=== PATIENT | female | born 1945 | race Caucasian/White ===

== ENCOUNTER 2019-04-24 14:38 | Emergency (ER) | payer MEDICARE, SELFPAY ==
[2019-04-24 14:48] VITALS: BP 148/70; PULSE 87; RESP 36; TEMP 36.9; O2SAT 98
--- NOTE | 2019-04-24 14:56 | ED.GENADULT ---
HPI - General Adult General Chief complaint: Skin/Abscess/Foreign Body Stated complaint: rash Time Seen by Provider: 04/24/19 14:59 Source: patient and RN notes reviewed Mode of arrival: ambulatory Limitations: no limitations History of Present Illness HPI narrative: This is a 73 years old female presents to the office for an evaluation of itchy rash/lesion for two weeks. Symptoms began with her scalp and has now moved down to her neck back and extremities. She has tried alcohol, hand cream and peroxide with no relief. Denies sick contact. Denies recent hospitalization. Related Data Home Medications Medication Instructions Recorded Confirmed Daliresp 500 mcg PO DAILY 02/07/19 04/24/19 acetaminophen 500 mg PO Q6H PRN 02/07/19 04/24/19 albuterol sulfate 2 puff INHALATION PRN PRN 02/07/19 04/24/19 arformoterol 15 mcg INHALATION BID 02/07/19 04/24/19 clopidogrel 75 mg PO DAILY 02/07/19 04/24/19 furosemide 20 mg PO DAILY 02/07/19 04/24/19 nitroglycerin 0.4 mg SUBLINGUAL Q5-15M PRN 02/07/19 04/24/19 rosuvastatin 20 mg PO DAILY 02/07/19 04/24/19 albuterol sulfate 2.5 mg INHALATION Q6H 03/21/19 04/24/19 arformoterol 15 mcg/2 mL solution 2 ml INHALATION DAILY 03/21/19 04/24/19 for nebulization ipratropium bromide 0.02 % 2.5 ml INHALATION Q6H 03/21/19 04/24/19 solution for inhalation lovastatin 20 mg tablet 20 mg PO DAILY 03/21/19 04/24/19 Allergies Allergy/AdvReac Type Severity Reaction Status Date / Time No Known Allergies Allergy Verified 03/21/19 13:49 Review of Systems Review of Systems: Narrative: CONSTITUTIONAL: Denies fever or feeling ill CARDIOVASCULAR: Denies chest pain RESPIRATORY: Reports chronic dyspnea due to COPD; sometimes wear oxygen at home/as needed GASTROINTESTINAL: Denies abdominal pain, nausea, vomiting GENITOURINARY: Denies urinary symptoms MUSCULOSKELETAL: Denies extremities pain NEUROLOGIC: Denies lightheaded PMFSH Past Medical History Medical History Acute blood loss anemia Acute exacerbation of chronic obstructive pulmonary disease (COPD) Acute GI bleeding Arthritis CAD (coronary artery disease) CHF (congestive heart failure) With ischemic cardiomyopathy with initial ejection fraction June 2017 at 35% improved ejection fraction August 2018 to 66 5% COPD (chronic obstructive pulmonary disease) PFTs October 2018 demonstrated moderately severe obstructive disease with severe small airway disease with good bronchodilator response, mild hyperinflation, severe air trapping with severe increase in airway resistance COPD (chronic obstructive pulmonary disease) Depression DVT prophylaxis Dysuria Elevated troponin Emphysema, unspecified Gastritis without peptic ulcer disease H/O: HTN (hypertension) History of heart attack June 2017 Hypercholesteremia Pneumonia Respiratory failure with hypoxia Surgical History Surgical History History of appendectomy History of carpal tunnel surgery [place] History of cholecystectomy February 2014 laparoscopic cholecystectomy performed by Dr. Alvarez History of hysterectomy Hx of bilateral cataract extraction April 2016 Hx of cardiac cath Cardiac catheterization June [address] Charles with a bare metal stent placed in the LAD Family History Family History Sibling Family history of cardiovascular disease Family history of chronic obstructive pulmonary disease Mother Patient's mother is , Onset Age: 74 Other Hypertension Social History Social History Social History: The patient is and lives with her daughter. She is a former smoker. She started smoking at the age of 14 and stopped at the age of 70. She smoked 1.5-2 packs per day. 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
== END 2019-04-24 15:15 | disposition home or self-care (01) ==
PROVIDERS: Emergency Provider Nurse Practitioner; PCP Family Medicine
DX: L21.9 Seborrheic dermatitis, unspecified (principal); I11.0 Hypertensive heart disease with heart failure; I25.2 Old myocardial infarction; I50.9 Heart failure, unspecified; Z87.891 Personal history of nicotine dependence
CPT/HCPCS: 99213; G0463

== ENCOUNTER 2019-05-16 17:48 | Emergency (ER) | payer MEDICARE, SELFPAY ==
[2019-05-16] VITALS (11 sets, daily range): BP systolic 138–154; BP diastolic 62–81; PULSE 75–79; RESP 17–24; TEMP 36.4–37.1; O2SAT 97–100
--- NOTE | ~2019-05-16 | XR_ITS ---
EXAMINATION: XR chest 1V portable DATE: 05/16/2019 18:15 INDICATION: Shortness of breath. TECHNIQUE: A single frontal view of the chest was obtained. COMPARISON: Chest 2 views 02/07/2019, chest CT 09/19/2018 FINDINGS: The lungs are hyperexpanded with lucencies, consistent with emphysema. Calcified bilateral lung nodules are consistent with old granulomatous disease. There is mild atelectasis in the lower virgilio ng zones. No pleural effusion or pneumothorax. The heart size is normal. IMPRESSION: 1. Mild atelectasis in the lower lung zones. 2. Severe emphysema. Reviewed, dictated and finalized at location A.
--- NOTE | 2019-05-16 17:55 | ECG_ITS ---
Measurements Intervals [place] Rate: 77 P: 72 SC: 153 QRS: 78 QRSD: 121 T: 65 QT: 410 QTc: 467 Interpretive Statements SINUS RHYTHM RIGHT BUNDLE BRANCH BLOCK BASELINE ARTIFACT- I, II, III, AVR, AVL, AVF, V4-V6 ABNORMAL ECG Electronically Signed On 05-16-2019 17:58:27 CDT by Michele Bartholomew D.O.
[2019-05-16 18:20] LABS: Basophils Absolute Auto 0.2 K/mm3 (0.0-0.1); Basophils Percent Auto 1.3 % (0.2-1.2); Eosinophils Absolute Auto 2.9 K/mm3 (0-0.3); Eosinophils Percent Auto 25.1 % (0-4.4); Hematocrit 39.1 % (37.0-47.0); Hemoglobin 11.5 g/dL (12.0-15.0); Immature Granulocyte Absolute 0.03 K/mm3 (0.00-0.031); Immature Granulocyte Percent A 0.3 % (0-0.5); Lymphocytes Absolute Auto 2.45 K/mm3 (0.9-3.2); Lymphocytes Percent Auto 21.5 % (18.3-44.2); Mean Corpuscular HGB Conc 29.4 g/dl (32-36); Mean Corpuscular Hemoglobin 24.7 pg (26-34); Mean Corpuscular Volume 84.1 fl (80-100); Mean Platelet Volume 9.1 fl (7.4-10.4); Monocytes Absolute Auto 1.1 K/mm3 (0.1-0.6); Neutrophils Absolute Auto 4.8 K/mm3 (1.3-6.7); Neutrophils Percent Auto 41.8 % (45.5-73.1); Platelet Count Result 480 k/mm3 (150-375); Red Blood Count 4.65 M/mm3 (4.2-5.4); Red Cell Distribution Width 18.6 % (11.5-14.5); White Blood Count 11.4 K/mm3 (4.5-10.0)
--- NOTE | 2019-05-16 18:23 | ED.SOB ---
HPI - SOB/Dyspnea General Chief Complaint: Shortness of Breath/Dyspnea Stated Complaint: copd exacerbation Time Seen by Provider: 05/16/19 18:18 Source: patient and RN notes reviewed Mode of arrival: other Limitations: no limitations History of Present Illness HPI Narrative: Pt is a 73 y/o female who presents to the ED with c/o SOB that began a few days ago, but suddenly worsened today. Pt has a hx of COPD. Pt states that she takes her medications as directed. Pt states that she called her PCP today and her PCP is ordering Prednisone for her. She states that she was on continuous home oxygen for a year, but she was recently removed from the continuous home oxygen. She notes that for the past week she has been on 1L of home oxygen. She notes that she uses home oxygen now whenever the weather changes or as needed. Pt's family states that she called Dr. Morales and the pt was recommended to come to the ED for further evaluation. Pt denies chest pain, fever, chills, cough, nausea, vomiting, recent weight changes, and being around any sick contacts. MD elicited complaint: shortness of breath Pertinent past history: COPD, congestive heart failure and pneumonia Onset (ago): day(s) Timing: other (suddenly worsened) Known history of: COPD, congestive heart failure and recurrent pneumonia Associated symptoms: denies other symptoms Related Data Home Medications Medication Instructions Recorded Confirmed Daliresp 500 mcg PO DAILY 02/07/19 04/24/19 acetaminophen 500 mg PO Q6H PRN 02/07/19 04/24/19 albuterol sulfate 2 puff INHALATION PRN PRN 02/07/19 04/24/19 arformoterol 15 mcg INHALATION BID 02/07/19 04/24/19 clopidogrel 75 mg PO DAILY 02/07/19 04/24/19 furosemide 20 mg PO DAILY 02/07/19 04/24/19 nitroglycerin 0.4 mg SUBLINGUAL Q5-15M PRN 02/07/19 04/24/19 rosuvastatin 20 mg PO DAILY 02/07/19 04/24/19 albuterol sulfate 2.5 mg INHALATION Q6H 03/21/19 04/24/19 arformoterol 15 mcg/2 mL solution 2 ml INHALATION DAILY 03/21/19 04/24/19 for nebulization ipratropium bromide 0.02 % 2.5 ml INHALATION Q6H 03/21/19 04/24/19 solution for inhalation lovastatin 20 mg tablet 20 mg PO DAILY 03/21/19 04/24/19 Allergies Allergy/AdvReac Type Severity Reaction Status Date / Time No Known Allergies Allergy Verified 03/21/19 13:49 Review of Systems Review of Systems: All systems reviewed & are unremarkable except as noted in HPI and below Constitutional: Constitutional: Denies chills, Denies fever(s), Denies weight gain and Denies weight loss Cardiovascular: Cardiovascular: Denies chest pain Respiratory: Respiratory: Denies cough and Reports dyspnea Gastrointestinal: Gastrointestinal: Denies nausea and Denies vomiting REPLACED BY [facility] Past Medical History Medical History (Updated 05/16/19 @ 19:46 by Oscar Lomax MD) Acute blood loss anemia Acute exacerbation of chronic obstructive pulmonary disease (COPD) Acute GI bleeding Arthritis CAD (coronary artery disease) Carpal tunnel syndrome Cataracts, bilateral CHF (congestive heart failure) With ischemic cardiomyopathy with initial ejection fraction June 2017 at 35% improved ejection fraction August 2018 to 66 5% COPD (chronic obstructive pulmonary disease) PFTs October 2018 demonstrated moderately severe obstructive disease with severe small airway disease with good bronchodilator response, mild hyperinflation, severe air trapping with severe increase in airway resistance COPD (chronic obstructive pulmonary disease) Depression DVT prophylaxis Dysuria Elevated troponin Emphysema, unspecified Gastritis without peptic ulcer disease H/O: HTN (hypertension) History of heart attack June 2017 Hypercholesteremia Pneumonia Respiratory failure with hypoxia Surgical History Surgical History History of appendectomy History of carpal tunnel surgery [place] History of cholecystectomy February 2014 laparoscopic cholecystectomy performed by Dr. Alvarez History o
[2019-05-16 18:30] LABS: Hypochromasia 1+ (NORMAL); Ovalocytes 1+ (NORMAL); Platelet Estimate Increased (Adequate)
[2019-05-16 18:33] LABS: Blood Urea Nitrogen 15 mg/dL (7-17); Calcium 9.1 mg/dL (8.4-10.2); Carbon Dioxide 26 mmol/L (22-30); Chloride 104 mmol/L (98-107); Estimated CRCL calculation 29 ml/min; Estimated Glomerular Filt Rate 49; Glucose 106 mg/dL (65-105); Potassium 4.7 mmol/L (3.4-5.0); Sodium 136 mmol/L (137-145)
[2019-05-16] MEDS: methylPREDNISolone SOD SUCC 125 MG VIAL IV PUSH (18:36)
[2019-05-16 18:52] LABS: Alveolar/Arterial O2 Gradient 31.2 mmHg; Base Excess ABG 0.8 mEq/l (+/-2.0); Fractional Inspired Oxygen 24 %; HCO3 ABG 26.3 mEq/l (22.0-26.0); Methemoglobin ABG 0.3 %THb (0-1.5); Oxygen Content ABG 16.5 %vol (16.0-22.0); Oxygen Saturation ABG 96.3 % (95.0-100.0); Oxyhemoglobin 95.1 % THb (90.0-100.0); PCO2 ABG 45.6 mmHg (35.0-45.0); PO2 ABG 85.7 mmHg (80.0-100.0); PO2 FiO2 Ratio Arterial Blood 3.57 %; Reduced Hemoglobin 4.6 %THb (0-5.0); Total Hemoglobin 12.3 g/dL (12.0-18.0); pH ABG 7.379 (7.350-7.450)
[2019-05-16 18:53] LABS: Device NASAL CANNULA; Site Drawn RIGHT BRACHIAL
== END 2019-05-16 20:22 | disposition home or self-care (01) ==
PROVIDERS: Emergency Medicine; Emergency Provider Emergency Medicine; PCP Family Medicine
DX: J44.1 Chronic obstructive pulmonary disease with (acute) exacerbation (principal); I25.10 Atherosclerotic heart disease of native coronary artery without angina pectoris; I50.9 Heart failure, unspecified; I11.0 Hypertensive heart disease with heart failure; E78.00 Pure hypercholesterolemia, unspecified; M19.90 Unspecified osteoarthritis, unspecified site; Z98.42 Cataract extraction status, left eye; Z98.41 Cataract extraction status, right eye; Z87.891 Personal history of nicotine dependence
CPT/HCPCS: 36415; 36600; 71045; 80048; 82375; 82805; 83050; 85025; 93005; 96374; 99284; J2930

== ENCOUNTER 2019-07-05 18:35 | Inpatient (IN) | payer MEDICARE, SELFPAY ==
[2019-07-05] VITALS (11 sets, daily range): BP systolic 70–110; BP diastolic 46–62; PULSE 65–100; RESP 18–27; TEMP 37.6; O2SAT 95–100
--- NOTE | ~2019-07-05 | XR_ITS ---
EXAMINATION: XR chest 1V portable EXAM DATE: 07/05/2019 20:02 INDICATION: Cough and weakness, history COPD. TECHNIQUE: Portable AP frontal chest x-ray was obtained. Comparison is made to prior examination from 05/16/2019. FINDINGS: Severe chronic hyperinflation. Some scattered post infectious residua unchanged. No conflue nt consolidation, pneumothorax or pleural effusion suspected. The bones are osteopenic. There are eve ny degenerative changes. Cardiomediastinal silhouette is normal. IMPRESSION: Severe chronic hyperinflation. Reviewed, dictated and finalized at location A.
--- NOTE | ~2019-07-05 | CT_ITS ---
EXAMINATION: CT brain wo con, CT cervical spine wo con EXAM DATE: 07/05/2019 19:53 INDICATION: Head injury, headache. Nausea and vomiting. Generalized weakness. TECHNIQUE: Spiral CT of the head was performed without contrast. Axial, coronal and sagittal images were reviewed. Spiral CT of the cervical spine was performed without contrast. Axial images were rev iewed. Coronal and sagittal reformatted images were also reviewed. The dose-length product (DLP) fo r this examination was 605.33 (accession [id number]), 110.08 (accession [id number]) mGy-cm. The exposure was tailored according to patient size, and iterative reconstruction (ASIR) was used as additional dose reduction technique. There is no prior study for comparison. FINDINGS: HEAD CT: There is no acute intraparenchymal hemorrhage. No evidence of intraparenchymal brain mass l esion. No evidence of acute infarction. There is moderate periventricular and subcortical hypodensit y, nonspecific but probably related to small vessel ischemic disease. There is moderate prominence of the sulci and ventricles related to cerebral atrophy. There is intracranial carotid arterioscler osis. There is no mass effect or midline shift. There is no obstructive hydrocephalus suspected. T here are no extra-axial collections. There are no acute calvarial fractures. Patient has had bilate ral ocular lens surgery. Soft tissue is unremarkable. The visualized sinuses and mastoid air cells are well aerated. 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 There is no evide nce of acute cervical fracture. The odontoid process is intact. Pre-dens space is normal. Preverte bral soft tissue is normal. There are no soft tissue abnormalities identified. There is no disc spa ce widening or traumatic vertebral body subluxation suspected. Moderate to severe cervical spondylos is. Severe apical emphysema with some right apical scarring. A detailed level by level evaluation of spondylosis can be added as addendum if requested. IMPRESSION: 1. No acute intracranial or cervical findings. 2. Age-related findings. Reviewed, dictated and finalized at location A. IMPRESSION: 1. No acute intracranial or cervical findings. 2. Age-related findings.
--- NOTE | ~2019-07-05 | XR_ITS ---
EXAMINATION: XR chest 1V portable DATE: 07/06/2019 01:02 INDICATION: Shortness of breath. TECHNIQUE: A single frontal view of the chest was obtained. COMPARISON: Chest single view 07/05/2019, chest CT 09/19/2018 FINDINGS: The lungs are hyperexpanded with lucencies, consistent with emphysema. There is mild scarri ng at the lung apices. Calcified bilateral lung nodules and calcified hilar lymph nodes are consisten t with old granulomatous disease. There is mild atelectasis in the lower lung zones. No pleural effus ion or pneumothorax. The heart size is normal. IMPRESSION: 1. Severe emphysema. 2. Mild scarring at the lung apices and mild atelectasis in the lower lung zones. Reviewed, dictated and finalized at location A. IMPRESSION: 1. Severe emphysema. 2. Mild scarring at the lung apices and mild atelectasis in the lower lung zone s.
--- NOTE | ~2019-07-05 | XR_ITS ---
EXAMINATION: XR chest 1V portable DATE: 07/06/2019 11:25 INDICATION: Right chest pain. TECHNIQUE: A single frontal view of the chest was obtained. COMPARISON: Chest single view 07/06/2019 at 12:52 AM, chest CT 09/19/2018 FINDINGS: The lungs are hyperexpanded with lucencies, consistent with emphysema. There is mild scarri ng at right lung apex. No pleural effusion or pneumothorax. The heart size is normal. IMPRESSION: 1. Severe emphysema. Reviewed, dictated and finalized at location A. IMPRESSION: 1. Severe emphysema.
--- NOTE | ~2019-07-05 | NM_ITS ---
EXAMINATION: NM pulmonary perfusion DATE: 07/07/2019 07:02 INDICATION: Chest pain. TECHNIQUE: 5.12 mCi Tc-99m MAA was administered intravenously for perfusion images. Scintigraphic i mages of the chest were obtained. COMPARISON: Chest single view 07/06/2019 FINDINGS: Perfusion images show large and moderate sized defects in the upper lobes and small and moderate size d defects in the lower lobes. The chest radiographs demonstrate severe emphysema. ] IMPRESSION: 1. Nondiagnostic (low or intermediate probability) for pulmonary embolism by modified PIOPED II crit eryoni. Reviewed, dictated and finalized at location A. IMPRESSION: 1. Nondiagnostic (low or intermediate probability) for pulmonary embolism by catie san PIOPED II criteria.
--- NOTE | 2019-07-05 18:47 | ECG_ITS ---
Measurements Intervals [place] Rate: 97 P: 81 DC: 167 QRS: 78 QRSD: 116 T: 73 QT: 363 QTc: 463 Interpretive Statements SINUS RHYTHM INCOMPLETE RIGHT BUNDLE BRANCH BLOCK BASELINE ARTIFACT- V3-V5 BORDERLINE ECG Electronically Signed On 07-05-2019 19:45:50 CDT by Michele Bartholomew D.O.
[2019-07-05 19:01] LABS: Basophils Percent Auto 0.3 % (0.2-1.2); Eosinophils Absolute Auto 0.2 K/mm3 (0-0.3); Eosinophils Percent Auto 1.6 % (0-4.4); Hematocrit 40.9 % (37.0-47.0); Immature Granulocyte Absolute 0.04 K/mm3 (0.00-0.031); Immature Granulocyte Percent A 0.3 % (0-0.5); Lymphocytes Absolute Auto 0.61 K/mm3 (0.9-3.2); Lymphocytes Percent Auto 5.3 % (18.3-44.2); Mean Corpuscular HGB Conc 31.8 g/dl (32-36); Mean Corpuscular Hemoglobin 27.4 pg (26-34); Mean Corpuscular Volume 86.3 fl (80-100); Mean Platelet Volume 8.6 fl (7.4-10.4); Monocytes Absolute Auto 0.8 K/mm3 (0.1-0.6); Neutrophils Absolute Auto 9.8 K/mm3 (1.3-6.7); Neutrophils Percent Auto 85.5 % (45.5-73.1); Platelet Count Result 335 k/mm3 (150-375); Red Blood Count 4.74 M/mm3 (4.2-5.4); Red Cell Distribution Width 21.7 % (11.5-14.5); White Blood Count 11.5 K/mm3 (4.5-10.0)
[2019-07-05 19:11] LABS: Ovalocytes 1+ (NORMAL); Platelet Estimate Adequate (Adequate)
[2019-07-05 19:13] LABS: Alanine Aminotransferase 11 U/L (4-35); Albumin Level 3.9 g/dL (3.5-5.1); Alkaline Phosphatase 104 U/L (38-126); Aspartate Amino Transferase 26 U/L (14-36); Bilirubin,Total 0.9 mg/dL (0.2-1.3); Blood Urea Nitrogen 24 mg/dL (7-17); Calcium 9.5 mg/dL (8.4-10.2); Carbon Dioxide 23 mmol/L (22-30); Chloride 105 mmol/L (98-107); Estimated CRCL calculation 21 ml/min; Estimated Glomerular Filt Rate 34; Glucose 88 mg/dL (65-105); Potassium 4.2 mmol/L (3.4-5.0); Sodium 137 mmol/L (137-145)
[2019-07-05 19:17] LABS: Partial Thromboplastin Time 26.8 SECONDS (22.3-36.8); Prothrombin Time 12.6 Seconds (11.1-14.7)
--- NOTE | 2019-07-05 19:37 | ED.GENADULT ---
HPI - General Adult General Chief complaint: GI Bleed Stated complaint: black stools, n/v Time Seen by Provider: 07/05/19 18:59 History of Present Illness HPI narrative: Patient presents with her daughter for numerous complaints. She starts with her headache which is 7 out of 10 which is been all day today. She has a history of headaches but this 1 is worse. She says she is on a blood thinner but does not know which one. The pain radiates to her neck shoulder blades and entire back, and then down her arms to the elbows. She did not try pain medicine for this at home. She has difficulty with her vision but this is chronic, she is off balance intermittently, but not now. She has some memory loss but no confusion and is oriented x3. She also has pain in the right flank, which also started today. She said that she has had black tarry stools for 3 weeks. Her appetite is poor and she has had dry heaves. She has a cough nausea chills and weakness. She does not have fever or sweats. She wears oxygen at home. She had chest pain today from when she woke up until middle of the afternoon. Is gone now. It was in the mid to left chest. Related Data Home Medications Medication Instructions Recorded Confirmed acetaminophen 500 mg PO Q6H PRN 02/07/19 07/06/19 clopidogrel 75 mg PO DAILY 02/07/19 07/06/19 furosemide 20 mg PO DAILY 02/07/19 07/06/19 nitroglycerin 0.4 mg SUBLINGUAL Q5-15M PRN 02/07/19 07/06/19 albuterol sulfate 2.5 mg INHALATION Q6H 03/21/19 07/06/19 arformoterol 15 mcg/2 mL solution 2 ml INHALATION DAILY 03/21/19 07/06/19 for nebulization ipratropium bromide 0.02 % 2.5 ml INHALATION Q6H 03/21/19 07/06/19 solution for inhalation lovastatin 20 mg tablet 20 mg PO DAILY 03/21/19 07/06/19 aspirin 81 mg tablet,delayed 81 mg PO DAILY 05/22/19 07/06/19 release metoprolol tartrate 50 mg tablet 50 mg PO BID tablet 05/22/19 07/06/19 Allergies Allergy/AdvReac Type Severity Reaction Status Date / Time No Known Allergies Allergy Verified 05/22/19 09:10 Review of Systems Review of Systems: Narrative: CONSTITUTIONAL: Denies fever, chills, or sweats. EYES: Denies visual changes, redness, or discharge. ENT: Denies rhinorrhea, congestion, sore throat, or otalgia. CARDIOVASCULAR: Denies palpitations, or edema. RESPIRATORY: Denies dyspnea. GASTROINTESTINAL: Denies abdominal pain, vomiting, or diarrhea. She has had black tarry stools for 3-week. GENITOURINARY: Denies dysuria or hematuria. SKIN: Denies rash or itching. MUSCULOSKELETAL: Denies joint pain, or myalgia. NEUROLOGIC: Denies numbness, or weakness. PSYCHIATRIC: Denies anxiety or depression. All systems reviewed & are unremarkable except as noted in HPI and below PMFSH Past Medical History Medical History Acute blood loss anemia Acute exacerbation of chronic obstructive pulmonary disease (COPD) Acute GI bleeding Arthritis CAD (coronary artery disease) Carpal tunnel syndrome Cataracts, bilateral CHF (congestive heart failure) With ischemic cardiomyopathy with initial ejection fraction June 2017 at 35% improved ejection fraction August 2018 to 66 5% COPD (chronic obstructive pulmonary disease) PFTs October 2018 demonstrated moderately severe obstructive disease with severe small airway disease with good bronchodilator response, mild hyperinflation, severe air trapping with severe increase in airway resistance COPD (chronic obstructive pulmonary disease) Depression DVT prophylaxis Dysuria Elevated troponin Emphysema, unspecified Gastritis without peptic ulcer disease H/O: HTN (hypertension) History of heart attack June 2017 Hypercholesteremia Pneumonia Respiratory failure with hypoxia Surgical History Surgical History History of appendectomy History of carpal tunnel surgery [place] History of cholecystectomy February 2014 laparoscopic cholecystectomy performed b
[2019-07-05 19:53] LABS: NT Pro B Type Natriuretic Pept 1030 PG/ML (5-100); Troponin I 0.015 ng/mL (0.000-0.034)
[2019-07-05] MEDS: SODIUM CHLORIDE 0.9% IV 1,000 ML 999 ML (21:27)
[2019-07-05 22:19] LABS: Troponin I 0.014 ng/mL (0.000-0.034)
[2019-07-06] VITALS (26 sets, daily range): BP systolic 70–126; BP diastolic 34–85; PULSE 98–135; RESP 18–22; TEMP 36.2–37.1; O2SAT 95–100; BMI 16.7
--- NOTE | 2019-07-06 00:16 | ADMGEN ---
This patient, Clarice Ron, was admitted to Medical Room 349-01. Patient/family oriented to hospital policies and general routines including ID bracelet, bed and alarms, visiting hours, pain management, procedures, bathroom and other care routines, personal items, smoking policy, room service/diet, and visiting hours. Valuables list has been completed. Information on how to activate the Rapid Response Team has been discussed. Patient/Family are encouraged to report perceived risks to care and to ask questions if they do not understand what they are told or what they should do.
--- NOTE | 2019-07-06 00:32 | PM.IMHP ---
H&P: HPI History of Present Illness Chief complaint: possible GI bleed and headache and CHF and COPD Narrative: This is a pleasant 73 year old female with known chronic CHF, COPD, chronic respiratory failure on home oxygen who presented to the hospital today with multiple complaints. The patient complained of a diffuse aches and pains, including a headache, neck and shoulder pain all day today. She has been having black stools for the past three weeks and this morning she had a loose black stool. The patient states she is on a blood thinner but can't remember the name of it. She has never had a colonoscopy before. She also reports signifciant midsternal chest pain in the morning. She is known to be short of breath everyday from her COPD and does report wheezing. She denies any fevers, chills, cough, sore throat, abdominal pain, dysuria, hematuria, or diarrhea. The patient was evaluated in the ER tonight and routine labs were obtained and were unremarkable. ER provider considered giving the patient lasix tonight until they noticed that her blood pressure was low and instead gave the patient a fluid bolus? Rectal exam was performed in the ER and was guiaic negative. ER provider has consulted GI specialist Dr Osuna and has asked that we admit the patient to the hospital for evaluation of her chronic black stools. On my enconter with the patient she currently denies any headache or chest pain. Review of Systems Review of Systems: All systems reviewed & are unremarkable except as noted in HPI and below PMFSH Past Medical History Medical History Acute blood loss anemia Acute exacerbation of chronic obstructive pulmonary disease (COPD) Acute GI bleeding Arthritis CAD (coronary artery disease) Carpal tunnel syndrome Cataracts, bilateral CHF (congestive heart failure) With ischemic cardiomyopathy with initial ejection fraction June 2017 at 35% improved ejection fraction August 2018 to 66 5% COPD (chronic obstructive pulmonary disease) PFTs October 2018 demonstrated moderately severe obstructive disease with severe small airway disease with good bronchodilator response, mild hyperinflation, severe air trapping with severe increase in airway resistance COPD (chronic obstructive pulmonary disease) Depression DVT prophylaxis Dysuria Elevated troponin Emphysema, unspecified Gastritis without peptic ulcer disease H/O: HTN (hypertension) History of heart attack June 2017 Hypercholesteremia Pneumonia Respiratory failure with hypoxia Surgical History Surgical History History of appendectomy History of carpal tunnel surgery [place] History of cholecystectomy February 2014 laparoscopic cholecystectomy performed by Dr. Alvarez History of hysterectomy Hx of bilateral cataract extraction April 2016 Hx of cardiac cath Cardiac catheterization June [address] Charles with a bare metal stent placed in the LAD Family History Family History Sibling Family history of cardiovascular disease Family history of chronic obstructive pulmonary disease Mother Patient's mother is , Onset Age: 74 Other Hypertension Social History Social History Social History: The patient is and lives with her daughter. She is a former smoker. She started smoking at the age of 14 and stopped at the age of 70. She smoked 1.5-2 packs per day. 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 She reports that since she retired a couple of years ago she has actually put on about 20 lb. Her optimization manager is Dr. Morales/Korey Yanez BUTTER MELTER. She remains a full code. Her daughter, Tete Cervantes, is her POA. Smoking packs per day: 2 Smoking cigarettes per day: 40.0 Years smoked: 55 Smoking pack-years
[2019-07-06 00:59] LABS: Hematocrit 36.5 % (37.0-47.0); Hemoglobin 11.3 g/dL (12.0-15.0)
[2019-07-06 01:07] LABS: Troponin I < 0.012 ng/mL (0.000-0.034)
[2019-07-06] MEDS: ACETAMINOPHEN 500 MG TABLET PO (06:20)
[2019-07-06 06:29] LABS: Basophils Percent Auto 0.4 % (0.2-1.2); Eosinophils Absolute Auto 0.1 K/mm3 (0-0.3); Eosinophils Percent Auto 0.9 % (0-4.4); Hematocrit 34.5 % (37.0-47.0); Hemoglobin 10.8 g/dL (12.0-15.0); Immature Granulocyte Absolute 0.17 K/mm3 (0.00-0.031); Immature Granulocyte Percent A 1.5 % (0-0.5); Lymphocytes Absolute Auto 0.69 K/mm3 (0.9-3.2); Lymphocytes Percent Auto 6.1 % (18.3-44.2); Mean Corpuscular HGB Conc 31.3 g/dl (32-36); Mean Corpuscular Hemoglobin 27.1 pg (26-34); Mean Corpuscular Volume 86.7 fl (80-100); Mean Platelet Volume 9.3 fl (7.4-10.4); Monocytes Absolute Auto 0.5 K/mm3 (0.1-0.6); Monocytes Percent Auto 4.7 % (2.6-8.5); Neutrophils Absolute Auto 9.7 K/mm3 (1.3-6.7); Neutrophils Percent Auto 86.4 % (45.5-73.1); Platelet Count Result 285 k/mm3 (150-375); Red Blood Count 3.98 M/mm3 (4.2-5.4); Red Cell Distribution Width 21.7 % (11.5-14.5); White Blood Count 11.3 K/mm3 (4.5-10.0)
[2019-07-06 06:55] LABS: Troponin I 0.012 ng/mL (0.000-0.034)
[2019-07-06 06:57] LABS: Blood Urea Nitrogen 28 mg/dL (7-17); Calcium 8.6 mg/dL (8.4-10.2); Carbon Dioxide 22 mmol/L (22-30); Chloride 105 mmol/L (98-107); Estimated CRCL calculation 17 ml/min; Estimated Glomerular Filt Rate 26; Glucose 92 mg/dL (65-105); Potassium 3.6 mmol/L (3.4-5.0); Sodium 135 mmol/L (137-145)
[2019-07-06 07:11] LABS: Platelet Estimate Adequate (Adequate)
[2019-07-06 07:12] LABS: Anisocytosis 1+ (NORMAL)
[2019-07-06] MEDS: IPRATROPIUM BR 0.02% INH SOLN 0.5 MG/2.5 ML VIAL INHALATION ×3 (09:33→19:00)
[2019-07-06] MEDS: BUDESONIDE RESPULE NEB 0.5 MG/2 ML AMP INHALATION ×2 (09:33→19:00)
--- NOTE | 2019-07-06 09:34 | WPDGICN ---
Assessment and Plan Assessment and plan (1) Change in bowel habit: Code(s): R19.4 - Change in bowel habit Status: Acute Assessment and Plan: Patient reports a change in bowel color. This is a nonspecific finding. Many different things can cause stool color change. Current hemoglobin is essentially stable. Stool Hemoccult confirmed to be negative in the emergency room. At the present time would consider elective screening colonoscopy that could be performed as an outpatient. Continue to monitor hemoglobin appears appropriate as she has various nonspecific complaints. Diet will be allowed to advance as tolerated. (2) COPD (chronic obstructive pulmonary disease): Code(s): J44.9 - Chronic obstructive pulmonary disease, unspecified Status: Chronic (3) CHF (congestive heart failure): Code(s): I50.9 - Heart failure, unspecified Status: Chronic GI Consult Note Consult date/time: 07/06/19 09:34 HPI: Clarice Ron is a 73 year old female Seen in evaluation at the request of the Emergency room.. Patient presented to the emergency room with multiple complaints. Among her complaints was a 3 week history of tarry stool. For this reason I have been consulted. In the emergency room stool was documented be Hemoccult negative. Patient exhibits significant anxiety on questioning. She has a question of loose stools and possible diarrhea. She also complains of diffuse body aches had shoulder aches. A headache. Patient reports never having had a screening colonoscopy in the past. Past medical history is significant for COPD, congestive heart failure, PMFSH Past Medical History Medical History Acute blood loss anemia Acute exacerbation of chronic obstructive pulmonary disease (COPD) Acute GI bleeding Arthritis CAD (coronary artery disease) Carpal tunnel syndrome Cataracts, bilateral CHF (congestive heart failure) With ischemic cardiomyopathy with initial ejection fraction June 2017 at 35% improved ejection fraction August 2018 to 66 5% COPD (chronic obstructive pulmonary disease) PFTs October 2018 demonstrated moderately severe obstructive disease with severe small airway disease with good bronchodilator response, mild hyperinflation, severe air trapping with severe increase in airway resistance COPD (chronic obstructive pulmonary disease) Depression DVT prophylaxis Dysuria Elevated troponin Emphysema, unspecified Gastritis without peptic ulcer disease H/O: HTN (hypertension) History of heart attack June 2017 Hypercholesteremia Pneumonia Respiratory failure with hypoxia Surgical History Surgical History History of appendectomy History of carpal tunnel surgery [place] History of cholecystectomy February 2014 laparoscopic cholecystectomy performed by Dr. Alvarez History of hysterectomy Hx of bilateral cataract extraction April 2016 Hx of cardiac cath Cardiac catheterization June [address] Charles with a bare metal stent placed in the LAD Family History Family History Sibling Family history of cardiovascular disease Family history of chronic obstructive pulmonary disease Mother Patient's mother is , Onset Age: 74 Other Hypertension Social History Social History Social History: The patient is and lives with her daughter. She is a former smoker. She started smoking at the age of 14 and stopped at the age of 70. She smoked 1.5-2 packs per day. 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 She reports that since she retired a couple of years ago she has actually put on about 20 lb. Her overhauler bus truck is Dr. Morales/Korey Yanez [employer]. She remains a full code. Her daughter, Tete Cervantes, is her POA. Teri
[2019-07-06] MEDS: LOVASTATIN 20 MG TABLET PO (09:40)
[2019-07-06] MEDS: SODIUM CHLORIDE 0.9% IV 500 ML IV CONT (10:17)
[2019-07-06] MEDS: ONDANSETRON INJ 4 MG/2 ML VIAL IV PUSH ×2 (11:05→17:23)
[2019-07-06] MEDS: LIDOCAINE 5% PATCH 1 PATCH TRANSDERM (12:25)
[2019-07-06 12:45] LABS: Hematocrit 31.6 % (37.0-47.0)
[2019-07-06] MEDS: METOCLOPRAMIDE HCL INJ 10 MG/2 ML VIAL 5 MG IV PUSH ×2 (12:52→18:53)
[2019-07-06] MEDS: ALBUTEROL SULFATE NEB 2.5 MG/0.5 ML INH 5 MG INHALATION (14:34)
--- NOTE | 2019-07-06 16:41 | ECG_ITS ---
Measurements Intervals [place] Rate: 137 P: AK: 0 QRS: 56 QRSD: 121 T: 68 QT: 317 QTc: 480 Interpretive Statements SINUS OR ECTOPIC ATRIAL TACHYCARDIA RIGHT BUNDLE BRANCH BLOCK ABNORMAL ECG Electronically Signed On 07-06-2019 17:12:51 CDT by Michele Bartholomew D.O.
[2019-07-06] MEDS: calcium polycarbophiL 625 MG TABLET PO (16:57)
--- NOTE | 2019-07-06 17:36 | PC.NURSE ---
Patient transferred to IMU room 214, report to NINA Alonso.
[2019-07-06] MEDS: AMIODARONE 360 MG/D5W 200 ML 360 MG/200 ML BAG 33.3 MG IV CONT ×2 (17:53→23:42)
--- NOTE | 2019-07-06 17:56 | PM.IMPN ---
Progress Note: A&P Assessment and Plan (1) GI bleed: Code(s): K92.2 - Gastrointestinal hemorrhage, unspecified Status: Chronic Assessment and Plan: The patient has had black stools for three weeks and she states she is on a blood thinner although it appears that she is only on antiplatelet agents. We have been asked to admit the patient to the hospital by Dr. Osuna as he wants to evaluate the patient here instead of referring her to his office. We will admit the patient for observation. Trend H/H, Transfuse prn. Check FOBT. Hold antiplatelet agents. GI, Dr. Osuna has been consulted by ER provider. 07/06/19 17:56 Patient is 78-year-old female presented emergency department with a complaint of 3 week history of black tarry stool patient was recently discharged in January after see had a EGD showing ulcerative gastritis, currently patient denies any abdominal pain nausea or vomiting patient is seen by GI has ordered stool Hemoccult further evaluation, currently denies any chest pain palpitation, her blood pressure is quite low 70/40 patient normally gets metoprolol 50 mg b.i.d. and Lasix which is on hold, was given a bolus of 500 cc normal cellular which did improve her blood pressure, (2) CHF (congestive heart failure): Code(s): I50.9 - Heart failure, unspecified Status: Chronic Assessment and Plan: Compensated. Monitor Is and Os, daily weights, Continue home CHF meds. (3) COPD (chronic obstructive pulmonary disease): Code(s): J44.9 - Chronic obstructive pulmonary disease, unspecified Status: Chronic Assessment and Plan: Continue home bronchodilators and supplemental oxygen. (4) Chronic renal insufficiency: Qualifiers: Chronic kidney disease stage: unspecified stage Qualified Code(s): N18.9 - Chronic kidney disease, unspecified Code(s): N18.9 - Chronic kidney disease, unspecified Status: Chronic Assessment and Plan: Monitor renal function and urine output. Subjective Date/time seen: 07/06/19 17:56 Patient is 78-year-old female presented emergency department with a complaint of 3 week history of black tarry stool patient was recently discharged in January after see had a EGD showing ulcerative gastritis, currently patient denies any abdominal pain nausea or vomiting patient is seen by GI has ordered stool Hemoccult further evaluation, currently denies any chest pain palpitation, her blood pressure is quite low 70/40 patient normally gets metoprolol 50 mg b.i.d. and Lasix which is on hold, was given a bolus of 500 cc normal cellular which did improve her blood pressure, Review of Systems Review of Systems: All systems reviewed & are unremarkable except as noted in HPI and below Exam Narrative: Exam Narrative: Elderly frail Const: General: comfortable and no acute distress HENMT: General nose exam: Normal nares present Eyes: General: appearance normal, both eyes and all related structures Sclera: sclerae normal Neck: Neck: supple Resp: Effort & Inspection: normal respiratory effort Auscultation: clear to auscultation bilaterally Cardio: Rate: regular rate Rhythm: regular rhythm GI: Auscultation: normal bowel sounds Skin: General skin exam: normal color Neuro: Speech: normal speech Sensory Exam: normal sensation Extrem: General: normal to inspection Objective Data Vital Signs Vital Signs: Vital Signs - 24 hr 07/05/19 18:38 07/05/19 19:00 07/05/19 20:40 Temperature 99.6 F Pulse Rate 98 96 100 Respiratory Rate 20 20 24 H Blood Pressure 108/57 L 96/52 L 99/58 L Pulse Oximetry 96 99 95 07/05/19 21:12 07/05/19 21:15 07/05/19 21:30 Temperature Pulse Rate 99 99 87 Respiratory Rate 21 H 21 H 20 Blood Pressure 86/47 L 70/49 L 93/46 L Pulse Oximetry 100 100 100 07/05/19 21:48 07/05/19 22:05 07/05/19 22:17 Temperature Pulse Rate 65 98 98 Respiratory Rate 18 18 18 Blood Pressure 110/57 L 105/58 L 103/54
--- NOTE | 2019-07-06 18:13 | PC.NURSE ---
Received patient from 349 into 214 at 1750. Report received from María WOOD
[2019-07-06 19:18] LABS: Hematocrit 31.2 % (37.0-47.0); Hemoglobin 10.1 g/dL (12.0-15.0)
[2019-07-06] MEDS: SODIUM CHLORIDE 0.9% IV 1,000 ML 999 ML IV CONT (20:58)
--- NOTE | 2019-07-06 22:07 | ECG_ITS ---
Measurements Intervals [place] Rate: 123 P: 82 SC: 160 QRS: 78 QRSD: 118 T: 75 QT: 341 QTc: 490 Interpretive Statements SINUS OR ECTOPIC ATRIAL TACHYCARDIA VENTRICULAR PREMATURE COMPLEX RIGHT BUNDLE BRANCH BLOCK BASELINE ARTIFACT- I, II, III, AVL, V1 ABNORMAL ECG Electronically Signed On 07-07-2019 9:08:44 CDT by Michele Bartholomew D.O.
[2019-07-06 23:09] LABS: Hematocrit 28.2 % (37.0-47.0); Hemoglobin 8.9 g/dL (12.0-15.0); Mean Corpuscular HGB Conc 31.6 g/dl (32-36); Mean Corpuscular Hemoglobin 27.2 pg (26-34); Mean Corpuscular Volume 86.2 fl (80-100); Mean Platelet Volume 9.4 fl (7.4-10.4); Platelet Count Result 183 k/mm3 (150-375); Red Blood Count 3.27 M/mm3 (4.2-5.4); Red Cell Distribution Width 21.8 % (11.5-14.5); White Blood Count 9.5 K/mm3 (4.5-10.0)
[2019-07-06] MEDS: ACETAMINOPHEN 325 MG TABLET 650 MG PO (23:15)
[2019-07-06] MEDS: SODIUM CHLORIDE 0.9% IV 1,000 ML 75 ML IV CONT (23:16)
[2019-07-06 23:22] LABS: Lactic Acid Reflex 2.2 mmol/L (0.7-2.1)
[2019-07-06 23:23] LABS: Alanine Aminotransferase 19 U/L (4-35); Albumin Level 2.5 g/dL (3.5-5.1); Alkaline Phosphatase 85 U/L (38-126); Aspartate Amino Transferase 39 U/L (14-36); Bilirubin,Total 0.3 mg/dL (0.2-1.3); Blood Urea Nitrogen 35 mg/dL (7-17); Calcium 7.3 mg/dL (8.4-10.2); Carbon Dioxide 16 mmol/L (22-30); Chloride 102 mmol/L (98-107); Creatine Kinase 53 U/L (30-135); Estimated CRCL calculation 13 ml/min; Estimated Glomerular Filt Rate 19; Glucose 240 mg/dL (65-105); Potassium 3.4 mmol/L (3.4-5.0); Sodium 131 mmol/L (137-145)
[2019-07-06 23:34] LABS: Troponin I 0.016 ng/mL (0.000-0.034)
[2019-07-06 23:35] LABS: D Dimer 3.72 ug/mL (<0.48)
[2019-07-07] VITALS (34 sets, daily range): BP systolic 79–132; BP diastolic 41–74; PULSE 94–141; RESP 16–30; TEMP 36.3–37.9; O2SAT 96–98
[2019-07-07] MEDS: SODIUM CHLORIDE 0.9% IV 500 ML 999 ML IV CONT (00:41)
--- NOTE | 2019-07-07 00:45 | PC.NURSE ---
patient brought down with RN to V/Q scan
[2019-07-07] MEDS: IPRATROPIUM BR 0.02% INH SOLN 0.5 MG/2.5 ML VIAL INHALATION ×4 (01:00→20:19)
[2019-07-07 03:02] LABS: Reflex Lactic Acid Yes or No Add Lactic
[2019-07-07 03:24] LABS: Troponin I 0.023 ng/mL (0.000-0.034)
--- NOTE | 2019-07-07 04:09 | PCRCNOTE ---
[facility] was down
[2019-07-07] MEDS: AMIODARONE 360 MG/D5W 200 ML 360 MG/200 ML BAG 33.3 MG IV CONT (05:34)
[2019-07-07 05:40] LABS: Lactic Acid 1.9 mmol/L (0.7-2.1)
[2019-07-07 05:47] LABS: Alanine Aminotransferase 25 U/L (4-35); Albumin Level 2.5 g/dL (3.5-5.1); Alkaline Phosphatase 113 U/L (38-126); Aspartate Amino Transferase 47 U/L (14-36); Bilirubin,Total 0.3 mg/dL (0.2-1.3); Blood Urea Nitrogen 39 mg/dL (7-17); Calcium 7.8 mg/dL (8.4-10.2); Carbon Dioxide 17 mmol/L (22-30); Chloride 108 mmol/L (98-107); Estimated CRCL calculation 13 ml/min; Estimated Glomerular Filt Rate 17; Glucose 89 mg/dL (65-105); Potassium 3.6 mmol/L (3.4-5.0); Sodium 134 mmol/L (137-145)
[2019-07-07 05:54] LABS: Troponin I 0.027 ng/mL (0.000-0.034)
--- NOTE | 2019-07-07 07:21 | WPDGIPROGNO ---
Progress Note: A&P Additional Plan Patient continues to complain of abdominal pain. She states that may be somewhat lessened. No recent bowel movement described. Stools have been black for the last several weeks. Review of records reveal endoscopy in January 2019 showed significant gastritis. She may have had bleeding at that point. Physical exam reveals her to be alert. Abdomen is soft. Modest epigastric tenderness described. Labs reveal decline in hemoglobin 8.9 this morning, hematocrit 28.2, impression 1. Melena. 2. Anemia. This may be blood loss anemia. Plan is to proceed with EGD today. Prior to discharge. Subjective Date/time seen: 07/07/19 07:21 Objective Data Vital Signs Vital Signs: Vital Signs - 24 hr 07/06/19 08:00 07/06/19 09:33 07/06/19 09:36 Temperature Pulse Rate 114 H 109 H Respiratory Rate 20 Blood Pressure Pulse Oximetry 97 07/06/19 09:42 07/06/19 09:49 07/06/19 12:00 Temperature 36.2 C L Pulse Rate 101 H 101 H 110 H Respiratory Rate 20 20 Blood Pressure 70/40 L Pulse Oximetry 100 07/06/19 12:07 07/06/19 14:25 07/06/19 14:35 Temperature 36.9 C Pulse Rate 109 H 103 H 101 H Respiratory Rate 18 20 20 Blood Pressure 80/50 L Pulse Oximetry 97 07/06/19 16:00 07/06/19 16:24 07/06/19 19:00 Temperature 37.1 C Pulse Rate 133 H 123 H 128 H Respiratory Rate 20 20 Blood Pressure 86/48 L Pulse Oximetry 95 07/06/19 19:06 07/06/19 19:14 07/06/19 19:58 Temperature 37.0 C Pulse Rate 130 H 130 H Respiratory Rate 20 18 Blood Pressure 126/85 Pulse Oximetry 97 99 07/06/19 20:00 07/06/19 20:23 07/06/19 21:40 Temperature Pulse Rate 135 H Respiratory Rate Blood Pressure 82/44 L 77/34 L Pulse Oximetry 07/06/19 22:00 07/06/19 22:05 07/06/19 22:40 Temperature Pulse Rate 123 H Respiratory Rate Blood Pressure 96/44 L 87/44 L Pulse Oximetry 07/06/19 23:48 07/07/19 00:00 07/07/19 01:00 Temperature 36.7 C Pulse Rate 121 H 131 H 124 H Respiratory Rate 18 20 Blood Pressure 94/44 L Pulse Oximetry 99 07/07/19 01:10 07/07/19 01:40 07/07/19 02:00 Temperature Pulse Rate 119 H 118 H Respiratory Rate 20 Blood Pressure 92/45 L Pulse Oximetry 07/07/19 02:15 07/07/19 04:00 07/07/19 04:20 Temperature 36.5 C Pulse Rate 113 H 96 Respiratory Rate 16 Blood Pressure 100/43 L 98/49 L Pulse Oximetry 97 07/07/19 05:20 07/07/19 06:00 Temperature Pulse Rate 117 H Respiratory Rate Blood Pressure 95/49 L Pulse Oximetry Intake/Output Intake/Output: Intake & Output 07/04/19 07/05/19 07/06/19 07/07/19 23:59 23:59 23:59 23:59 Intake Total 2530 1463 Output Total 300 200 Balance 2230 1263 Meds/Results Medications: Active Medications Generic Name Dose Route Start Last Admin Trade Name Freq PRN Reason Stop Dose Admin Acetaminophen 650 mg 07/06/19 00:31 07/06/19 23:15 Tylenol Tablet PO 650 mg Q4H PRN Administration Mild Pain (1-3) or Fever Acetaminophen 500 mg 07/06/19 05:53 07/06/19 06:20 Tylenol Tablet PO 500 mg Q6H PRN Administration headache Hydrocodone Bitart/Acetaminophen 1 tab 07/06/19 16:41 07/06/19 16:54 Elmer 5-325 Mg PO 1 tab Q6H PRN Administration pain >4 Albuterol 5 mg 07/06/19 00:30 07/06/19 14:34 Albuterol Sulf Neb 2.5mg/0.5ml INHALATION 5 mg Q4HRT PRN Administration Shortness Of Breath Budesonide 0.5 mg 07/06/19 08:00 07/06/19 19:00 Pulmicort Respule Neb INHALATION 0.5 mg Q12HRT KIAN Administration Calcium Polycarbophil 625 mg 07/06/19 17:00 07/06/19 16:57 Fiber Con PO 625 mg BID KIAN Administration Furosemide 20 mg 07/06/19 09:00 07/06/19 09:54 Lasix Tablet PO Not Given DAILY KIAN Amiodarone HCl/Dextrose 360 mg in 200 mls @ 33.333 mls/hr 07/06/19 19:03 07/07/19 05:34 Nexterone 360 Mg/D5w 200 Ml IV CONT 07/07/19 11:59
[2019-07-07] MEDS: LIDOCAINE 5% PATCH 1 PATCH TRANSDERM (08:17)
[2019-07-07] MEDS: SODIUM CHLORIDE 0.9% IV 1,000 ML 100 ML IV CONT (08:25)
[2019-07-07] MEDS: ALBUTEROL SULFATE NEB 2.5 MG/0.5 ML INH 5 MG INHALATION (08:30)
[2019-07-07] MEDS: BUDESONIDE RESPULE NEB 0.5 MG/2 ML AMP INHALATION ×2 (08:30→20:19)
--- NOTE | 2019-07-07 10:19 | PC.NURSE ---
Patient transported to GI lab with myself present as patient is on Amiodarone drip. Anesthesiologist to take over care of Amio drip for procedure and GI hatchery laborer will notify me once patient needs to be transported back to IMU.
--- NOTE | 2019-07-07 10:26 | WPDANESEPPF ---
Anes - Initial Pre Proc Eval Procedure: Operation Date: 07/07/19 10:30 Proposed Procedures p Esophagogastroduodenoscopy - Dillon Osuna MD Date/Time: 07/07/19 10:26 Surgeon: Cipriano Harmon MD Pre Op Diagnosis: possible GI bleed and headache and CHF and COPD Patient Data Age: 73 Gender: F Height: 5 ft 4 in Weight: 47.2 kg Last Vital Signs Temp 36.3 C L 07/07/19 08:00 Pulse 123 H 07/07/19 09:56 Resp 20 07/07/19 08:42 BP 93/48 L 07/07/19 08:00 Pulse Ox 97 07/07/19 09:20 Allergies Allergy/AdvReac Type Severity Reaction Status Date / Time No Known Allergies Allergy Verified 07/07/19 10:27 Home Medications Medication Instructions Recorded Confirmed Type acetaminophen 500 mg PO Q6H PRN 02/07/19 07/06/19 History clopidogrel 75 mg PO DAILY 02/07/19 07/06/19 History furosemide 20 mg PO DAILY 02/07/19 07/06/19 History nitroglycerin 0.4 mg SUBLINGUAL Q5-15M PRN 02/07/19 07/06/19 History albuterol sulfate 2.5 mg INHALATION Q6H 03/21/19 07/06/19 History arformoterol 15 mcg/2 mL solution 2 ml INHALATION DAILY 03/21/19 07/06/19 History for nebulization ipratropium bromide 0.02 % 2.5 ml INHALATION Q6H 03/21/19 07/06/19 History solution for inhalation lovastatin 20 mg tablet 20 mg PO DAILY 03/21/19 07/06/19 History budesonide 0.5 mg/2 mL suspension 0.5 mg INHALATION BID #60 ml 04/12/19 07/06/19 Rx for nebulization triamcinolone acetonide 0.5 % 1 applic TOPICAL BID PRN #15 gm 05/18/19 07/06/19 Rx topical cream aspirin 81 mg tablet,delayed 81 mg PO DAILY 05/22/19 07/06/19 History release metoprolol tartrate 50 mg tablet 50 mg PO BID tablet 05/22/19 07/06/19 History roflumilast 500 mcg tablet 500 mcg PO DAILY #30 tablet 07/05/19 07/06/19 Rx Laboratory Tests 07/06/19 07/06/19 07/06/19 12:28 18:39 23:00 WBC 9.5 K/mm3 K/mm3 (4.5-10.0) RBC 3.27 M/mm3 L M/mm3 (4.2-5.4) Hgb 10.0 g/dL L g/dL 10.1 g/dL L g/dL 8.9 g/dL L g/dL (12.0-15.0) (12.0-15.0) (12.0-15.0) Hct 31.6 % L % 31.2 % L % 28.2 % L % (37.0-47.0) (37.0-47.0) (37.0-47.0) MCV 86.2 fl fl (80-100) MCH 27.2 pg pg (26-34) MCHC 31.6 g/dl L g/dl (32-36) RDW 21.8 % H % (11.5-14.5) Plt Count 183 k/mm3 k/mm3 (150-375) MPV 9.4 fl fl (7.4-10.4) D-Dimer Sodium Potassium Chloride Carbon Dioxide BUN Creatinine Estim Creat Clear Calc Estimated GFR Glucose Lactic Acid Calcium Total Bilirubin AST ALT Alkaline Phosphatase Total Creatine Kinase Troponin I Total Protein Albumin TSH (Reflex) 07/06/19 07/06/19 07/06/19 23:00 23:00 23:00 WBC RBC Hgb Hct MCV MCH MCHC RDW Plt Count MPV D-Dimer 3.72 ug/mL H ug/mL (<0.48) Sodium 131 mmol/L L mmol/L (137-145) Potassium 3.4 mmol/L mmol/L (3.4-5.0) Chloride 102 mmol/L mmol/L (98-107) Carbon Dioxide 16 mmol/L L mmol/L (22-30) BUN 35 mg/dL H mg/dL (7-17) Creatinine 2.50 mg/dL H mg/dL (0.7-1.0) Estim Creat Clear Calc 13 ml/min ml/min Estimated GFR 19 L (59 - ) Glucose 240 mg/dL H mg/dL (65-105) Lactic Acid Calcium 7.3 mg/dL L mg/dL (8.4-10.2) Total Bilirubin 0.3 mg/dL mg/dL (0.2-1.3) AST 39 U/L H U/L (14-36) ALT 19 U/L U/L (4-35) Alkaline Phosphatase 85 U/L U/L (38-126) Total Creatine Kinase 53 U/L U/L (30-135) Troponin I 0.016 ng/mL ng/mL (0.000-0.034) Total Protein 5.0 g/dL L g/dL (
[2019-07-07] MEDS: LACTATED RINGERS 1,000 ML 150 ML IV CONT (10:36)
[2019-07-07] MEDS: BENZOCAINE (*SP) 60 ML SPRAY CAN (HURRICAINE) 1 SPRAY MUCOUS MEM (10:50)
--- NOTE | 2019-07-07 12:25 | PM.CNCAR ---
Assessment and Plan Additional Plan 73-year-old white female with: Parietal of constitutional complaints primarily concerned about cramping abdominal pain and black tarry stools. Patient has the history of CAD with previous PCI to the LAD in the past. No recent ischemic symptoms. Physical exam and chest x-ray evidence of severe COPD Patient is tachycardic on telemetry careful review in my opinion demonstrates nothing but sinus tachycardia. I therefore will stop her IV amiodarone and resume the beta-con. I will start at half of her previous dosage because of modest blood pressure. Her blood pressure at this time is however 110-120 systolic after receiving some IV fluid. Will follow with you while she is in the hospital but at this time I do not have any further specific cardiac recommendations. Deandre Perez MD [facility] History of Present Illness History of Present Illness Consult date/time: Date of service: 07/07/19 12:25 Reason For Visit: possible GI bleed and headache and CHF and COPD Narrative: This is a 73-year-old woman who is apparently known to Dr. Rivas of our practice with a history of coronary artery disease and previous interventional revascularization. I am asked to see her today by the hospitalist's because of the concern regarding her cardiac rhythm. The patient came to the emergency room last evening with a variety of complaints none of them particularly worrisome regarding her heart. She had complaining of generalized weakness some abdominal cramping discomfort and she states difficulty keeping food down at times. She noticed that she was having black stools for at least for 5 days and was concerned that she was GI bleeding. For these reasons she came to the emergency room and she was evaluated. Despite having black stools she was tested and was Hemoccult negative. For some reason she was given the diagnosis of GI bleeding and admitted to the hospital with that specific diagnosis. Dr. Osuna saw her in consultation and was concerned somewhat because there was a drop in her hemoglobin which possibly is he is delusional and she received some IV fluids. In any event she was brought to the GI lab for an endoscopy with no significant upper GI pathology or source of bleeding identified. Last evening the patient was tachycardic presumably they thought she had atrial fibrillation or atrial flutter and Dr. Strong of our practice was consulted over the telephone and orders were given to start the patient on intravenous amiodarone. The patient is back in room 214 now after her GI endoscopy procedure. She does not have any specific cardiac complaints she denies any sense of chest pain or palpitations. I have reviewed all of the EKGs that are on her chart as well as all of the rhythm strips. The only arrhythmia I see is sinus tachycardia. I do not believe any of her EKGs show atrial flutter and certainly none of them demonstrate atrial fibrillation. She she had been on metoprolol at a dosage of 50 mg q.12 hours as part of her standard medical regimen. The metoprolol has been placed on hold since admission. She is currently receiving some IV fluid as well. Review of her chest x-ray demonstrates marked hyperinflation and changes compatible with relatively severe chronic lung disease. She states she is known to have severe COPD with a previous heavy history of smoking for approximately 50 years. She stopped smoking 3 years ago Review of Systems Constitutional: Constitutional: Reports body ache(s) and Reports weakness Eyes: Eyes: Reports no additional eye complaints ENT: Reports system reviewed and no additional complaints, except as documented Cardiovascular: Cardiovascular: Reports no additional cardiovascular complaints Respiratory: Respiratory: Reports dyspnea on exertion Gastrointestinal: Gastrointestinal: Reports abdominal pain and Reports melena Musculoskeletal: Musculoskeletal: Reports myalgias Neurologic: Re
[2019-07-07 12:27] LABS: Magnesium 1.6 mg/dL (1.6-2.3)
[2019-07-07] MEDS: POTASSIUM CHLORIDE 20 MEQ PACKET (FOR LIQUID) 40 MEQ PO (13:05)
[2019-07-07] MEDS: LOVASTATIN 20 MG TABLET PO (13:05)
[2019-07-07] MEDS: ACETAMINOPHEN 325 MG TABLET 650 MG PO (13:06)
[2019-07-07] MEDS: METOPROLOL TARTRATE 25 MG TABLET PO ×2 (13:06→22:28)
[2019-07-07] MEDS: calcium polycarbophiL 625 MG TABLET PO (13:06)
[2019-07-07] MEDS: ONDANSETRON INJ 4 MG/2 ML VIAL IV PUSH (13:14)
[2019-07-07 15:21] LABS: Glucose Point of Care 82 (65-105)
[2019-07-07 15:29] LABS: Alveolar/Arterial O2 Gradient 262.6 mmHg; Base Excess ABG -11.8 mEq/l (+/-2.0); Fractional Inspired Oxygen 64 %; HCO3 ABG 13.8 mEq/l (22.0-26.0); Oxygen Content ABG 15.5 %vol (16.0-22.0); Oxygen Saturation ABG 98.8 % (95.0-100.0); Oxyhemoglobin 97.5 % THb (90.0-100.0); PCO2 ABG 30.7 mmHg (35.0-45.0); PO2 ABG 160.3 mmHg (80.0-100.0); Total Hemoglobin 11.1 g/dL (12.0-18.0)
[2019-07-07 15:31] LABS: Device NASAL CANNULA; Modified Allen's Test Pass; Site Drawn LEFT RADIAL; pH ABG 7.271 (7.350-7.450)
--- NOTE | 2019-07-07 16:33 | PM.IMPN ---
Progress Note: A&P Assessment and Plan (1) COPD (chronic obstructive pulmonary disease): Qualifiers: COPD type: unspecified COPD Qualified Code(s): J44.9 - Chronic obstructive pulmonary disease, unspecified Code(s): J44.9 - Chronic obstructive pulmonary disease, unspecified Status: Chronic Assessment and Plan: This unfortunate patient has severe, end-stage COPD that is oxygen dependent with recent marked decline in functional status She under daughter would both like to be discharged 07/07 on hospice care Trial of low-dose oral morphine concentrate for dyspnea in the meantime (2) CHF (congestive heart failure): Qualifiers: Heart failure type: unspecified Heart failure chronicity: chronic Qualified Code(s): I50.9 - Heart failure, unspecified Code(s): I50.9 - Heart failure, unspecified Status: Chronic (3) GI bleed: Qualifiers: GI bleed type/associated pathology: anorectal hemorrhage Qualified Code(s): K62.5 - Hemorrhage of anus and rectum Code(s): K92.2 - Gastrointestinal hemorrhage, unspecified Status: Chronic (4) Chronic renal insufficiency: Qualifiers: Chronic kidney disease stage: unspecified stage Qualified Code(s): N18.9 - Chronic kidney disease, unspecified Code(s): N18.9 - Chronic kidney disease, unspecified Status: Chronic Subjective Date/time seen: 07/07/19 16:33 Interval history: Patient was seen and examined at the request of Dr. Ugalde for hospice evaluation. Patient is oxygen dependent with severe COPD. Dyspnea with conversation. She is incontinent of stool in urine now. Prior to hospitalization she was not. She requires assistance with all ADLs. Palliative performance score currently is 30. Prior to hospitalization she was functioning fairly independently although was oxygen dependent and severely dyspneic. Review of Systems Review of Systems: Narrative: Described generalized ?sickness ?feeling throughout her body. Severe shortness of breath with exertion. No nausea vomiting or pain. Feels weak and lightheaded. Poor appetite. Exam Narrative: Exam Narrative: Frail elderly female is dyspneic with minimal exertion otherwise in no acute distress Neck without JVD Chest with increased AP diameter and diminished breath sounds throughout, mildly tachypneic Heart normal S1-S2 with regular rate no audible murmurs Extremities no edema cyanosis or clubbing Abdomen good bowel sounds soft nontender Musculoskeletal diffuse muscle wasting no gross deformities Neurologic cranial nerves symmetric to inspection Objective Data Vital Signs Vital Signs: Vital Signs - 24 hr 07/06/19 19:00 07/06/19 19:06 07/06/19 19:14 Temperature Pulse Rate 128 H 130 H Respiratory Rate 20 20 Blood Pressure Pulse Oximetry 97 07/06/19 19:58 07/06/19 20:00 07/06/19 20:23 Temperature 98.6 F Pulse Rate 130 H 135 H Respiratory Rate 18 Blood Pressure 126/85 82/44 L Pulse Oximetry 99 07/06/19 21:40 07/06/19 22:00 07/06/19 22:05 Temperature Pulse Rate 123 H Respiratory Rate Blood Pressure 77/34 L 96/44 L Pulse Oximetry 07/06/19 22:40 07/06/19 23:48 07/07/19 00:00 Temperature 98.0 F Pulse Rate 121 H 131 H Respiratory Rate 18 Blood Pressure 87/44 L 94/44 L Pulse Oximetry 99 07/07/19 01:00 07/07/19 01:10 07/07/19 01:40 Temperature Pulse Rate 124 H 119 H Respiratory Rate 20 20 Blood Pressure 92/45 L Pulse Oximetry 07/07/19 02:00 07/07/19 02:15 07/07/19 04:00 Temperature Pulse Rate 118 H 113 H Respiratory Rate Blood Pressure 100/43 L Pulse Oximetry 07/07/19 04:20 07/07/19 05:20 07/07/19 06:00 Temperature 97.7 F Pulse Rate 96 117 H Respiratory Rate 16 Blood Pressure 98/49 L 95/49 L Pulse Oximetry 97 07/07/19 08:00 07/07/19 08:30 07/07/19 08:42 Temperature 97.4 F L Pulse Rate 120 H 112 H 118 H Respiratory Rate
--- NOTE | 2019-07-07 16:52 | PM.IMPN ---
Progress Note: A&P Assessment and Plan (1) GI bleed: Qualifiers: GI bleed type/associated pathology: anorectal hemorrhage Qualified Code(s): K62.5 - Hemorrhage of anus and rectum Code(s): K92.2 - Gastrointestinal hemorrhage, unspecified Status: Chronic Assessment and Plan: 07/07/19 16:52 Patient is 78-year-old female presented emergency department with a complaint of 3 week history of black tarry stool patient was recently discharged in January after see had a EGD showing ulcerative gastritis, currently patient denies any abdominal pain nausea or vomiting patient is seen by GI has ordered stool Hemoccult further evaluation, currently denies any chest pain palpitation, her blood pressure is quite low 70/40 patient normally gets metoprolol 50 mg b.i.d. and Lasix which is on hold, was given a bolus of 500 cc normal cellular which did improve her blood pressure, later in the afternoon patient developed A. Fib with RVR and was started on Amiodorane and transferred to IMU, patient was seen by customer care assistant does not suspect patient has a failed amiodarone was stopped start the patient on beta-con, today patient had EGD which showed hital hernia but no source of bleeding, patient has hx of severe COPD and patient patient became quite hypoxic, and hypostensive, patient appeared quite distress with some retraction, I spoke with patient daughter Tete Cervantes and the daughter and patient have agreed with DNR and patient was seen By Dr. Aguilera and plan is to discharge patient home tomorrow under hospice care. (2) COPD (chronic obstructive pulmonary disease): Qualifiers: COPD type: unspecified COPD Qualified Code(s): J44.9 - Chronic obstructive pulmonary disease, unspecified Code(s): J44.9 - Chronic obstructive pulmonary disease, unspecified Status: Chronic Assessment and Plan: Will get the patient Solu-Medrol and Duo-neb (3) Chronic renal insufficiency: Qualifiers: Chronic kidney disease stage: unspecified stage Qualified Code(s): N18.9 - Chronic kidney disease, unspecified Code(s): N18.9 - Chronic kidney disease, unspecified Status: Chronic Assessment and Plan: Will continue to monitor Time Spent With Patient Time with patient: 15 - 25 minutes Subjective Date/time seen: 07/07/19 16:52 Patient is 78-year-old female presented emergency department with a complaint of 3 week history of black tarry stool patient was recently discharged in January after see had a EGD showing ulcerative gastritis, currently patient denies any abdominal pain nausea or vomiting patient is seen by GI has ordered stool Hemoccult further evaluation, currently denies any chest pain palpitation, her blood pressure is quite low 70/40 patient normally gets metoprolol 50 mg b.i.d. and Lasix which is on hold, was given a bolus of 500 cc normal cellular which did improve her blood pressure, later in the afternoon patient developed A. Fib with RVR and was started on Amiodorane and transferred to IMU, patient was seen by customer care assistant does not suspect patient has a failed amiodarone was stopped start the patient on beta-con, today patient had EGD which showed hital hernia but no source of bleeding, patient has hx of severe COPD and patient patient became quite hypoxic, and hypostensive, patient appeared quite distress with some retraction, I spoke with patient daughter Tete Cervantes and the daughter and patient have agreed with DNR and patient was seen By Dr. Aguilera and plan is to discharge patient home tomorrow under hospice care. Review of Systems Review of Systems: Narrative: per HPI Exam Narrative: Exam Narrative: Elderly frail Const: General: in distress HENMT: General nose exam: Normal nares present Eyes: Sclera: sclerae normal Neck: Other: Minimal retraction Resp: Other: Bilateral poor air entry with rales and rhonchi Cardio: Rate: regular rate Rhythm: regular rhythm GI:
[2019-07-07] MEDS: methylPREDNISolone SOD SUCC 125 MG VIAL 60 MG IV PUSH (18:00)
[2019-07-08] VITALS (11 sets, daily range): BP systolic 100–127; BP diastolic 51–56; PULSE 86–109; RESP 18–20; TEMP 36.6–37.1; O2SAT 94–100
[2019-07-08] MEDS: IPRATROPIUM BR 0.02% INH SOLN 0.5 MG/2.5 ML VIAL INHALATION ×2 (02:41→08:24)
[2019-07-08 05:03] LABS: Alanine Aminotransferase 28 U/L (4-35); Albumin Level 2.7 g/dL (3.5-5.1); Alkaline Phosphatase 126 U/L (38-126); Aspartate Amino Transferase 48 U/L (14-36); Bilirubin,Total 0.3 mg/dL (0.2-1.3); Blood Urea Nitrogen 51 mg/dL (7-17); Calcium 8.2 mg/dL (8.4-10.2); Carbon Dioxide 16 mmol/L (22-30); Chloride 107 mmol/L (98-107); Estimated CRCL calculation 11 ml/min; Estimated Glomerular Filt Rate 14; Glucose 103 mg/dL (65-105); Sodium 132 mmol/L (137-145)
[2019-07-08] MEDS: ALBUTEROL SULFATE NEB 2.5 MG/0.5 ML INH 5 MG INHALATION (08:23)
[2019-07-08] MEDS: BUDESONIDE RESPULE NEB 0.5 MG/2 ML AMP INHALATION (08:24)
--- NOTE | 2019-07-08 08:55 | PM.DS ---
DS: Diagnosis Admitting Diagnosis Admitting Diagnosis: Gastrointestinal hemorrhage, unspecified Discharge Diagnosis (1) GI bleed: Qualifiers: GI bleed type/associated pathology: anorectal hemorrhage Qualified Code(s): K62.5 - Hemorrhage of anus and rectum Code(s): K92.2 - Gastrointestinal hemorrhage, unspecified Status: Chronic Assessment and Plan: 07/07/19 16:52 Patient is 78-year-old female presented emergency department with a complaint of 3 week history of black tarry stool patient was recently discharged in January after see had a EGD showing ulcerative gastritis, currently patient denies any abdominal pain nausea or vomiting patient is seen by GI has ordered stool Hemoccult further evaluation, currently denies any chest pain palpitation, her blood pressure is quite low 70/40 patient normally gets metoprolol 50 mg b.i.d. and Lasix which is on hold, was given a bolus of 500 cc normal cellular which did improve her blood pressure, later in the afternoon patient developed A. Fib with RVR and was started on Amiodorane and transferred to IMU, patient was seen by supervisor cell efficiency does not suspect patient has a failed amiodarone was stopped start the patient on beta-con, today patient had EGD which showed hital hernia but no source of bleeding, patient has hx of severe COPD and patient patient became quite hypoxic, and hypostensive, patient appeared quite distress with some retraction, I spoke with patient daughter Tete Cervantes and the daughter and patient have agreed with DNR and patient was seen By Dr. Aguilera and plan is to discharge patient home tomorrow under hospice care. (2) COPD (chronic obstructive pulmonary disease): Qualifiers: COPD type: unspecified COPD Qualified Code(s): J44.9 - Chronic obstructive pulmonary disease, unspecified Code(s): J44.9 - Chronic obstructive pulmonary disease, unspecified Status: Chronic Assessment and Plan: Will get the patient Solu-Medrol and Duo-neb (3) Chronic renal insufficiency: Qualifiers: Chronic kidney disease stage: unspecified stage Qualified Code(s): N18.9 - Chronic kidney disease, unspecified Code(s): N18.9 - Chronic kidney disease, unspecified Status: Chronic Assessment and Plan: Will continue to monitor DS: Summary Hospital Course Reason for hospitalization: This is a pleasant 73 year old female with known chronic CHF, COPD, chronic respiratory failure on home oxygen who presented to the hospital today with multiple complaints. The patient complained of a diffuse aches and pains, including a headache, neck and shoulder pain all day today. She has been having black stools for the past three weeks and this morning she had a loose black stool. The patient states she is on a blood thinner but can't remember the name of it. She has never had a colonoscopy before. She also reports signifciant midsternal chest pain in the morning. She is known to be short of breath everyday from her COPD and does report wheezing. She denies any fevers, chills, cough, sore throat, abdominal pain, dysuria, hematuria, or diarrhea. The patient was evaluated in the ER tonight and routine labs were obtained and were unremarkable. ER provider considered giving the patient lasix tonight until they noticed that her blood pressure was low and instead gave the patient a fluid bolus? Rectal exam was performed in the ER and was guiaic negative. ER provider has consulted GI specialist Dr Osuna and has asked that we admit the patient to the hospital for evaluation of her chronic black stools. On my enconter with the patient she currently denies any headache or chest pain. Hospital Course: Patient is 78-year-old female presented emergency department with a complaint of 3 week history of black tarry stool patient was recently discharged in January after see had a EGD showing ulcerative gastritis, currently patient denies any abdomin
[2019-07-08] MEDS: METOPROLOL TARTRATE 25 MG TABLET PO (09:52)
[2019-07-08] MEDS: LOVASTATIN 20 MG TABLET PO (09:53)
[2019-07-08] MEDS: calcium polycarbophiL 625 MG TABLET PO (09:53)
[2019-07-08] MEDS: LIDOCAINE 5% PATCH 1 PATCH TRANSDERM (09:53)
--- NOTE | 2019-07-08 10:20 | PM.PNCARD ---
Progress Note: A&P Assessment and Plan (1) Acute exacerbation of chronic obstructive pulmonary disease: Code(s): J44.1 - Chronic obstructive pulmonary disease with (acute) exacerbation Status: Acute Assessment and Plan: Continue current regimen. Home on hospice (2) CHF (congestive heart failure): Qualifiers: Heart failure type: unspecified Heart failure chronicity: chronic Qualified Code(s): I50.9 - Heart failure, unspecified Code(s): I50.9 - Heart failure, unspecified Status: Chronic Assessment and Plan: Medications are stable. Discontinue newspaper writer. Will Increase metoprolol to 50 mg p.o. b.i.d. which is her home dose (3) GI bleed: Qualifiers: GI bleed type/associated pathology: anorectal hemorrhage Qualified Code(s): K62.5 - Hemorrhage of anus and rectum Code(s): K92.2 - Gastrointestinal hemorrhage, unspecified Status: Chronic (4) Chronic renal insufficiency: Qualifiers: Chronic kidney disease stage: unspecified stage Qualified Code(s): N18.9 - Chronic kidney disease, unspecified Code(s): N18.9 - Chronic kidney disease, unspecified Status: Chronic Subjective Date/time seen: 07/08/19 10:20 Interval history: Chief complaint shortness of breath, a Haacke possible atrial fibrillation Date of service 07/08/2019: She has decided upon hospice. She has no chest pain or unusual shortness of breath at this point Review of Systems Constitutional: Constitutional: Reports body ache(s) and Reports weakness Eyes: Eyes: Reports no additional eye complaints ENT: Reports system reviewed and no additional complaints, except as documented Cardiovascular: Cardiovascular: Reports no additional cardiovascular complaints and Reports dyspnea on exertion Respiratory: Respiratory: Reports dyspnea on exertion Gastrointestinal: Gastrointestinal: Reports abdominal pain and Reports melena Musculoskeletal: Musculoskeletal: Reports myalgias Neurologic: Reports system reviewed and no additional complaints, except as documented and Reports weakness Endocrine: Endocrine: Reports no additional endocrine complaints Hematologic/Lymphatic: Hematologic/Lymphatic: Reports no additional hematologic/lymphatic complaints Allergic/Immunologic: Allergic/Immunologic: Reports no additional allergic/immunologic complaints Exam Const: General: comfortable and no acute distress HENMT: Mouth: Yes dry mucous membranes Eyes: Sclera: sclerae normal Pupils: Equal, round and reactive pupils present Neck: Neck: supple and no JVD Thyroid: thyroid normal Other: Carotid pulses are normal with no bruits Resp: Effort & Inspection: normal respiratory effort Auscultation: diminished lung sounds Other: Breath sounds are markedly diminished in both lung pinto no wheezing no rales Barrel-shaped chest with expanded AP diameter Cardio: Rate: regular rate and tachycardic Rhythm: regular rhythm GI: Auscultation: normal bowel sounds Skin: General skin exam: normal color Neuro: Cranial nerves: Yes Equal, round and reactive pupils present Cognition (Neuro): normal cognition Extrem: General: normal to inspection Objective Data Vital Signs Vital Signs: Vital Signs - 24 hr 07/07/19 11:08 07/07/19 11:18 07/07/19 11:28 Temperature Pulse Rate 119 H 112 H 119 H Respiratory Rate 22 H 20 23 H Blood Pressure 99/74 L 110/43 L 99/60 L Pulse Oximetry 98 98 97 07/07/19 12:00 07/07/19 13:06 07/07/19 14:00 Temperature 36.9 C Pulse Rate 132 H 141 H 106 H Respiratory Rate 30 H Blood Pressure 132/51 L Pulse Oximetry 97 07/07/19 14:45 07/07/19 14:55 07/07/19 15:20 Temperature 36.7 C Pulse Rate 110 H 113 H 103 H Respiratory Rate 20 20 26 H Blood Pressure 88/48 L Pulse Oximetry 98 07/07/19 16:00 07/07/19 18:00 07/07/19 20:00 Temperature 37.1 C Pulse Rate 104 H 94 95 Respiratory Rate 20 Blood Pressure 79/41 L
== END 2019-07-08 11:18 | disposition hospice, home (50) | DRG 378 ==
LOC: ANHED 23:33 → ANH3MED 23:41 → ANHIMU 07-07 07:22 → ANH3MED 07-13 09:46 → ANHIMU 07-13 09:46
PROVIDERS: Emergency Medicine; Internal Medicine Gastroenterology; Physician Assistant; Admitting Provider Family Medicine; Emergency Provider Emergency Medicine; PCP Family Medicine; Visit Provider Family Medicine
PROC: 0DJ08ZZ Inspection of Upper Intestinal Tract, Via Natural or Artificial Opening Endoscopic (ICD-10-PCS; CPT 43235; principal; 2019-07-07 10:30)
DX: K62.5 Hemorrhage of anus and rectum (principal); J44.1 Chronic obstructive pulmonary disease with (acute) exacerbation; R64 Cachexia; Z68.1 Body mass index [BMI] 19.9 or less, adult; I13.0 Hypertensive heart and chronic kidney disease with heart failure and stage 1 through stage 4 chronic kidney disease, or unspecified chronic kidney disease; J96.11 Chronic respiratory failure with hypoxia; N18.9 Chronic kidney disease, unspecified; I50.9 Heart failure, unspecified; D64.9 Anemia, unspecified; K44.9 Diaphragmatic hernia without obstruction or gangrene; M19.90 Unspecified osteoarthritis, unspecified site; I25.10 Atherosclerotic heart disease of native coronary artery without angina pectoris; R19.4 Change in bowel habit; D72.829 Elevated white blood cell count, unspecified; F32.9 Major depressive disorder, single episode, unspecified; I48.91 Unspecified atrial fibrillation; Z99.81 Dependence on supplemental oxygen; I25.2 Old myocardial infarction; Z98.42 Cataract extraction status, left eye; Z98.41 Cataract extraction status, right eye; Z90.49 Acquired absence of other specified parts of digestive tract; Z90.710 Acquired absence of both cervix and uterus; Z95.5 Presence of coronary angioplasty implant and graft; Z87.891 Personal history of nicotine dependence; Z66 Do not resuscitate
CPT/HCPCS: 36415; 36600; 70450; 71045; 72125; 78580; 80048; 80053; 82550; 82805; 83605; 83735; 83880; 84443; 84484; 85014; 85018; 85025; 85027; 85380; 85610; 85730; 86850; 86900; 86901; 87040; 87077; 87186; 93005; 94640; 96360; 96361; 96374; 99285; A9270; A9540; G0378; J0282; J2370; J2405; J2704; J2765; J2930; J7030; J7040; J7120